=== PATIENT | female | born 1990 | race Two or more races ===

== ENCOUNTER 2019-06-17 09:51 | Emergency (ER) | payer MEDICAID ==
[~2019-06-17] VITALS: Ht 154.9 cm; Wt 77.1 kg
[2019-06-17] MEDS: ACETAMINOPHEN 325MG TABLET PO PRN ×2 (11:10→11:11)
[2019-06-17 11:32] LABS: CLARITY URINE CLOUDY (CLEAR); COLOR URINE YELLOW (YELLOW); KETONES URINE NEGATIVE (NEGATIVE); LEUKOCYTE ESTERASE URINE TRACE (NEGATIVE); NITRITE URINE POSITIVE (NEGATIVE); OCCULT BLOOD URINE NEGATIVE (NEGATIVE); PROTEIN URINE NEGATIVE (NEGATIVE); SPECIFIC GRAVITY URINE 1.009 (1.005-1.030); UROBILINOGEN URINE 0.2 E.U./dL (0.2-1.0)
[2019-06-17 11:40] LABS: CHLORIDE 104 mEq/L (98-107)
[2019-06-17 12:05] LABS: B-HCG QUANTITATIVE 12833 mIU/mL (<3)
[2019-06-17 13:11] LABS: BASOPHILS % 0.4 % (0.0-2.0); EOSINOPHILS % 0.8 % (0.0-5.0); HEMATOCRIT. 35.4 % (36.0-48.0); HEMOGLOBIN. 11.3 g/dL (12.0-16.0); LYMPHOCYTES % 17.6 % (20.0-50.0); MEAN CORPUSCULAR HEMOGLOBIN 22.4 pg (28.0-32.0); MEAN CORPUSCULAR VOLUME 70.1 fL (81.0-99.0); MEAN PLATELET VOLUME 8.8 fl (7.4-10.4); MONOCYTES % 4.5 % (2.0-8.0); NEUTROPHILS % 76.7 % (40.0-76.0); PLATELET 311 x1000/uL (130-400); RED BLOOD CELL COUNT 5.06 mill/uL (4.2-5.4)
[2019-06-17 13:49] LABS: PLATELET ESTIMATE NORMAL
[2019-06-17 13:53] VITALS: BP 141/75
== END 2019-06-17 13:53 | disposition home or self-care (01) ==
LOC: ER 09:51
DX: O23.02 Infections of kidney in pregnancy, second trimester (principal); O26.892 Other specified pregnancy related conditions, second trimester; R03.0 Elevated blood-pressure reading, without diagnosis of hypertension; Z3A.17 17 weeks gestation of pregnancy
CPT/HCPCS: 36415; 76805; 80053; 81003; 81025; 84702; 85025; 86850; 86900; 99284

== ENCOUNTER 2019-11-02 13:26 | Emergency (ER) | payer MEDICAID ==
[~2019-11-02] VITALS: Ht 154.9 cm; Wt 95.0 kg
[2019-11-02 14:42] VITALS: BP 128/78
[2019-11-02] MEDS ORDERED: PNV1TABL76 MT (17:44)
== END 2019-11-02 14:43 | disposition home or self-care (01) ==
LOC: ER 13:26
DX: O26.893 Other specified pregnancy related conditions, third trimester (principal); L29.9 Pruritus, unspecified; Z3A.34 34 weeks gestation of pregnancy
CPT/HCPCS: 99281

== ENCOUNTER 2019-11-02 14:38 | Observation (INO) | payer MEDICAID ==
[~2019-11-02] VITALS: Ht 154.9 cm; Wt 94.8 kg
[2019-11-02] MEDS ORDERED: PNV1TABL76 MT (17:44)
== END 2019-11-02 18:00 | disposition home or self-care (01) ==
LOC: 8 EST LDRP 14:38
PROVIDERS: ADMIT Obstetrics & Gynecology; ATTEND Obstetrics & Gynecology
DX: O9A.213 Injury, poisoning and certain other consequences of external causes complicating pregnancy, third trimester (principal); S90.861A Insect bite (nonvenomous), right foot, initial encounter; S90.862A Insect bite (nonvenomous), left foot, initial encounter; O26.893 Other specified pregnancy related conditions, third trimester; L29.9 Pruritus, unspecified; Z3A.39 39 weeks gestation of pregnancy; W57.XXXA Bitten or stung by nonvenomous insect and other nonvenomous arthropods, initial encounter; Y93.89 Activity, other specified; Y92.89 Other specified places as the place of occurrence of the external cause
CPT/HCPCS: 76805; 76818; 82239; 99281; G0378

== ENCOUNTER 2019-11-04 12:11 | Observation (INO) | payer MEDICAID ==
[~2019-11-04] VITALS: Ht 154.9 cm; Wt 95.3 kg
[~2019-11-04 12:11] MED LIST: PNV1TABL76 MT
== END 2019-11-04 13:30 | disposition home or self-care (01) ==
LOC: 8 EST LDRP 12:11
PROVIDERS: ADMIT Obstetrics & Gynecology; ATTEND Obstetrics & Gynecology
DX: Z34.90 Encounter for supervision of normal pregnancy, unspecified, unspecified trimester (principal); Z3A.39 39 weeks gestation of pregnancy
CPT/HCPCS: 59025; 76815; 76818; G0378

== ENCOUNTER 2019-11-06 11:19 | Inpatient (IN) | payer MEDICAID ==
[~2019-11-06] VITALS: Ht 154.9 cm; Wt 95.3 kg
[2019-11-06] MEDS ORDERED: DEXT 5%/LACTATED RINGERS 1,000 ML IV SCH (12:46)
[2019-11-06] MEDS ORDERED: LIDOCAINE HCL 1% 20ML VIAL (Pyxis) INJ INFIL SCH (13:00)
[2019-11-06] MEDS ORDERED: MISOPROSTOL 100MCG TABLET VG SCH (13:00)
[2019-11-06] MEDS ORDERED: METHYLERGONOVINE MALEATE 0.2 MG/ML IM PRN (13:00)
[2019-11-06] MEDS ORDERED: NALOXONE HCL 0.4 MG/ML 1ML VIAL IM PRN (13:00)
[2019-11-06] MEDS ORDERED: DEXT 5%/LR + PITOCIN 20UNITS/L 1,000 ML IV PRN (13:00)
[2019-11-06] MEDS ORDERED: CARBOPROST TROMETHAMINE 250 MCG/ML AMPUL IM PRN (13:00)
[2019-11-06] MEDS ORDERED: BUTORPHANOL TARTRATE 2 MG/ML VIAL IV PRN (13:00)
[2019-11-06 13:13] LABS: CLARITY URINE CLEAR (CLEAR); COLOR URINE YELLOW (YELLOW); KETONES URINE NEGATIVE (NEGATIVE); LEUKOCYTE ESTERASE URINE TRACE (NEGATIVE); NITRITE URINE NEGATIVE (NEGATIVE); OCCULT BLOOD URINE 3+ (NEGATIVE); PROTEIN URINE NEGATIVE (NEGATIVE); SPECIFIC GRAVITY URINE 1.019 (1.005-1.030); UROBILINOGEN URINE 0.2 E.U./dL (0.2-1.0)
[2019-11-06 13:19] LABS: BASOPHILS % 0.4 % (0.0-2.0); EOSINOPHILS % 0.1 % (0.0-5.0); HEMOGLOBIN. 11.9 g/dL (12.0-16.0); INR 0.9; MEAN CORPUSCULAR HEMOGLOBIN 24.9 pg (28.0-32.0); MEAN CORPUSCULAR VOLUME 77.8 fL (81.0-99.0); MEAN PLATELET VOLUME 9.2 fl (7.4-10.4); MONOCYTES % 4.2 % (2.0-8.0); NEUTROPHILS % 84.3 % (40.0-76.0); PARTIAL THROMBOPLASTIN TIME 33.6 sec (23.4-31.0); PLATELET 266 x1000/uL (130-400); PROTHROMBIN TIME 9.9 sec (9.6-11.0); RED BLOOD CELL COUNT 4.76 mill/uL (4.2-5.4); RED CELL DISTRIBUTION WIDTH 16.3 % (11.6-14.6)
[2019-11-06 13:58] LABS: HEPATITIS B SURFACE ANTIGEN NEGATIVE
[2019-11-06 14:16] LABS: *AMPHETAMINES SCREEN URINE NEGATIVE (NEGATIVE); *BARBITURATES SCREEN URINE NEGATIVE (NEGATIVE); *BENZODIAZEPINES SCREEN URINE NEGATIVE (NEGATIVE); *COCAINE SCREEN URINE NEGATIVE (NEGATIVE); METHADONE URINE SCREEN NEGATIVE (NEGATIVE); OPIATES URINE SCREEN NEGATIVE (NEGATIVE)
[2019-11-06 14:17] LABS: CANNABINOID URINE SCREEN NEGATIVE (NEGATIVE); PHENCYCLIDINE URINE SCREEN NEGATIVE (NEGATIVE)
[2019-11-06] MEDS: LACTATED RINGERS 1,000 ML IV SCH ×3 (14:53→20:00)
[2019-11-06] MEDS ORDERED: ROPIVACAINE HCL 10MG/ML 20 ML VIAL EPI ONE (19:15)
[2019-11-06] MEDS ORDERED: ROPIVACAINE HCL/PF EPIDURAL 200 ML EPI NR (19:15)
[2019-11-07] MEDS: LACTATED RINGERS 1,000 ML IV SCH ×2 (04:30→07:21)
[2019-11-07] MEDS ORDERED: MORPHINE SULFATE/PF 1MG/ML 10ML AMP ONE (07:45)
[2019-11-07] MEDS ORDERED: FENTANYL CITRATE/PF 50MCG/ML 2ML VIAL ONE (07:45)
[2019-11-07] MEDS ORDERED: MIDAZOLAM HCL 2 MG/2 ML VIAL ONE (07:58)
[2019-11-07] MEDS ORDERED: KETAMINE HCL 50 MG/ML 10ML ONE (07:58)
[2019-11-07] MEDS ORDERED: DIPHENHYDRAMINE 50MG/ML VIAL ONE (08:09)
[2019-11-07] MEDS ORDERED: KETOROLAC 60MG/2ML VIAL IM ONE (08:09)
[2019-11-07] MEDS ORDERED: OXYTOCIN 10 UNITS/ML 1ML ONE (08:14)
[2019-11-07] MEDS ORDERED: ESMOLOL HCL 10MG/ML 10ML VIAL IV ONE (08:14)
[2019-11-07] MEDS ORDERED: ONDANSETRON HCL 4MG/2ML INJ ONE (08:34)
[2019-11-07] MEDS ORDERED: DEXT 5%/LR + PITOCIN 20UNITS/L 1,000 ML IV SCH (08:44)
[2019-11-07] MEDS ORDERED: IBUPROFEN 400MG TABLET PO PRN (08:45)
[2019-11-07] MEDS ORDERED: BISACODYL 10MG SUPP PR PRN (08:45)
[2019-11-07] MEDS ORDERED: KETOROLAC 30MG/ML VIAL IV PRN (08:45)
[2019-11-07] MEDS ORDERED: RHO(D) IMMUNE GLOBULIN 300 MCG/SYR IM PRN (08:45)
[2019-11-07] MEDS ORDERED: NALOXONE HCL 0.4 MG/ML 1ML VIAL IV PRN (09:15)
[2019-11-07] MEDS ORDERED: BUTORPHANOL TARTRATE 2 MG/ML VIAL IV PRN (09:15)
[2019-11-07] MEDS ORDERED: DIPHENHYDRAMINE 50MG/ML VIAL IV PRN (09:15)
[2019-11-07] MEDS ORDERED: KETOROLAC 30MG/ML VIAL IV SCH (09:30)
[2019-11-07] MEDS ORDERED: LIDOCAINE HCL 2%/EPINEPHRINE 1:100,000 20 ML VIAL INFIL ONE ×2 (10:17→10:19)
[2019-11-07 11:25] VITALS: BP 105/63
[2019-11-07 11:55] VITALS: BP 99/50
[2019-11-07 13:00] VITALS: BP 106/52
[2019-11-07 16:34] VITALS: BP 105/62
[2019-11-07 20:00] VITALS: BP 106/61
[2019-11-08] VITALS: BP 119/67
[2019-11-08 04:00] VITALS: BP 11/57
[2019-11-08 06:28] LABS: BASOPHILS % 0.3 % (0.0-2.0); EOSINOPHILS % 0.5 % (0.0-5.0); HEMOGLOBIN. 8.7 g/dL (12.0-16.0); LYMPHOCYTES % 16.2 % (20.0-50.0); MEAN CORPUSCULAR HEMOGLOBIN 25.4 pg (28.0-32.0); MEAN CORPUSCULAR VOLUME 78.7 fL (81.0-99.0); MEAN PLATELET VOLUME 8.6 fl (7.4-10.4); MONOCYTES % 5.7 % (2.0-8.0); NEUTROPHILS % 77.3 % (40.0-76.0); PLATELET 206 x1000/uL (130-400); RED BLOOD CELL COUNT 3.43 mill/uL (4.2-5.4); RED CELL DISTRIBUTION WIDTH 16.6 % (11.6-14.6)
[2019-11-08 07:29] VITALS: BP 101/57
[2019-11-08] MEDS: IBUPROFEN 800MG TABLET PO PRN ×2 (13:47→21:08)
[2019-11-08 19:30] VITALS: BP 113/65
[2019-11-09] VITALS: BP 128/84
[2019-11-09 04:00] VITALS: BP 122/81
[2019-11-09] MEDS: IBUPROFEN 800MG TABLET PO PRN (07:41)
[2019-11-09 08:00] VITALS: BP 108/69
[2019-11-09] MEDS ORDERED: TETANUS, DIPHTHERIA, PERTUSSIS VAC/PF 0.5ML (>7YR OLD) IM ONE (08:00)
== END 2019-11-09 12:10 | disposition home or self-care (01) | DRG 540 ==
LOC: OBSVTOIN 11:19 → 8 EST LDRP 11:19 → 8EST 11-07 11:09
PROVIDERS: ADMIT Obstetrics & Gynecology; ATTEND Obstetrics & Gynecology
PROC: 10D00Z1 Extraction of Products of Conception, Low, Open Approach (ICD-10-PCS; principal; 2019-11-07)
DX: O32.8XX0 Maternal care for other malpresentation of fetus, not applicable or unspecified (principal); O77.0 Labor and delivery complicated by meconium in amniotic fluid; O99.214 Obesity complicating childbirth; E66.9 Obesity, unspecified; O99.02 Anemia complicating childbirth; D62 Acute posthemorrhagic anemia; Z37.0 Single live birth; Z3A.40 40 weeks gestation of pregnancy
CPT/HCPCS: 36415; 80305; 81003; 85025; 86592; 86703; 86762; 86850; 86900; 87340; 88307; 90715; 99281; G0378; J0595; J1200; J1885; J2250; J2274; J2405; J2590; J2795; J3010; J3490

== ENCOUNTER 2020-11-29 04:42 | Emergency (ER) | payer MEDICAID ==
[~2020-11-29] VITALS: Ht 154.9 cm; Wt 87.0 kg
[2020-11-29 06:45] LABS: BASOPHILS % 0.3 % (0.0-2.0); EOSINOPHILS % 0.6 % (0.0-5.0); HEMATOCRIT. 35.1 % (36.0-48.0); HEMOGLOBIN. 11.5 g/dL (12.0-16.0); LYMPHOCYTES % 19.4 % (20.0-50.0); MEAN CORPUSCULAR HEMOGLOBIN 24.2 pg (28.0-32.0); MEAN CORPUSCULAR VOLUME 73.6 fL (81.0-99.0); MEAN PLATELET VOLUME 8.1 fl (7.4-10.4); MONOCYTES % 6.4 % (2.0-8.0); NEUTROPHILS % 73.3 % (40.0-76.0); PLATELET 288 x1000/uL (130-400); RED BLOOD CELL COUNT 4.77 mill/uL (4.2-5.4); RED CELL DISTRIBUTION WIDTH 15.4 % (11.6-14.6)
[2020-11-29 06:55] LABS: CHLORIDE 104 mEq/L (98-107)
[2020-11-29 06:58] LABS: CLARITY URINE CLOUDY (CLEAR); COLOR URINE YELLOW (YELLOW); KETONES URINE NEGATIVE (NEGATIVE); LEUKOCYTE ESTERASE URINE 2+ (NEGATIVE); NITRITE URINE NEGATIVE (NEGATIVE); OCCULT BLOOD URINE NEGATIVE (NEGATIVE); PROTEIN URINE NEGATIVE (NEGATIVE); SPECIFIC GRAVITY URINE 1.026 (1.005-1.030); UROBILINOGEN URINE 0.2 E.U./dL (0.2-1.0)
[2020-11-29 07:18] LABS: B-HCG QUANTITATIVE 57543 mIU/mL (<3)
[2020-11-29 07:24] LABS: HCG SCREEN POSITIVE
[2020-11-29] MEDS ORDERED: NITR-87 MT (09:34)
[2020-11-29 09:44] VITALS: BP 110/71
== END 2020-11-29 09:45 | disposition home or self-care (01) ==
LOC: ER 04:42
DX: O23.31 Infections of other parts of urinary tract in pregnancy, first trimester (principal); R10.13 Epigastric pain; Z3A.11 11 weeks gestation of pregnancy
CPT/HCPCS: 36415; 76700; 76801; 80053; 81003; 81025; 84702; 84703; 85025; 87077; 87186; 99285

== ENCOUNTER 2021-06-15 00:38 | Inpatient (IN) | payer MEDICAID ==
[~2021-06-15] VITALS: Ht 154.9 cm; Wt 95.3 kg
[~2021-06-15 00:38] MED LIST changes: +NITR-87 MT; -PNV1TABL76 MT
[2021-06-15] MEDS ORDERED: CARBOPROST TROMETHAMINE 250 MCG/ML AMPUL IM PRN (01:30)
[2021-06-15] MEDS ORDERED: METHYLERGONOVINE MALEATE 0.2 MG/ML IM PRN (01:30)
[2021-06-15] MEDS ORDERED: NALOXONE HCL 0.4 MG/ML 1ML VIAL IM PRN (01:30)
[2021-06-15] MEDS ORDERED: TERBUTALINE SULFATE 1MG/ML VIAL SUBCUT ONE (01:30)
[2021-06-15] MEDS ORDERED: DEXT 5%/LR + PITOCIN 20UNITS/L 1,000 ML IV SCH (01:30)
[2021-06-15 02:11] LABS: CLARITY URINE CLOUDY (CLEAR); COLOR URINE YELLOW (YELLOW); KETONES URINE TRACE (NEGATIVE); LEUKOCYTE ESTERASE URINE 1+ (NEGATIVE); NITRITE URINE NEGATIVE (NEGATIVE); OCCULT BLOOD URINE 3+ (NEGATIVE); PROTEIN URINE 1+ (NEGATIVE); SPECIFIC GRAVITY URINE 1.025 (1.005-1.030)
[2021-06-15 02:13] LABS: BASOPHILS % 0.8 % (0.0-2.0); EOSINOPHILS % 0.5 % (0.0-5.0); HEMATOCRIT. 34.4 % (36.0-48.0); HEMOGLOBIN. 10.6 g/dL (12.0-16.0); LYMPHOCYTES % 20.8 % (20.0-50.0); MEAN CORPUSCULAR HEMOGLOBIN 21.8 pg (28.0-32.0); MEAN CORPUSCULAR VOLUME 70.5 fL (81.0-99.0); MEAN PLATELET VOLUME 9.1 fl (7.4-10.4); MONOCYTES % 6.1 % (2.0-8.0); NEUTROPHILS % 71.8 % (40.0-76.0); PLATELET 278 x1000/uL (130-400); RED BLOOD CELL COUNT 4.88 mill/uL (4.2-5.4)
[2021-06-15] MEDS: LACTATED RINGERS 1,000 ML IV SCH ×3 (02:15→21:10)
[2021-06-15 02:18] LABS: CHLORIDE 106 mEq/L (98-107)
[2021-06-15 02:24] LABS: *AMPHETAMINES SCREEN URINE NEGATIVE (NEGATIVE)
[2021-06-15 02:25] LABS: *BARBITURATES SCREEN URINE NEGATIVE (NEGATIVE); *BENZODIAZEPINES SCREEN URINE NEGATIVE (NEGATIVE); *COCAINE SCREEN URINE NEGATIVE (NEGATIVE); METHADONE URINE SCREEN NEGATIVE (NEGATIVE); OPIATES URINE SCREEN NEGATIVE (NEGATIVE)
[2021-06-15 02:26] LABS: PHENCYCLIDINE URINE SCREEN NEGATIVE (NEGATIVE)
[2021-06-15] MEDS ORDERED: CITRIC ACID/SODIUM CITRATE SOLN 30ML UDC PO SCH (02:30)
[2021-06-15 02:34] LABS: INR 0.9; PROTHROMBIN TIME 9.7 sec (9.6-11.0)
[2021-06-15] MEDS ORDERED: CEFAZOLIN SODIUM 1000MG/VIAL ONE (02:36)
[2021-06-15] MEDS ORDERED: MORPHINE SULFATE/PF 1MG/ML 10ML AMP ONE (02:36)
[2021-06-15] MEDS ORDERED: EPHEDRINE SULFATE 50MG/ML VIAL ONE (02:36)
[2021-06-15] MEDS ORDERED: PHENYLEPHRINE HCL 10 MG/ML 1ML (IV VIAL) IV ONE (02:36)
[2021-06-15] MEDS ORDERED: FENTANYL CITRATE/PF 50MCG/ML 2ML VIAL ONE (02:36)
[2021-06-15] MEDS ORDERED: OXYTOCIN 10 UNITS/ML 1ML ONE (02:36)
[2021-06-15] MEDS ORDERED: DIPHENHYDRAMINE 50MG/ML VIAL ONE (02:36)
[2021-06-15] MEDS ORDERED: ONDANSETRON HCL 4MG/2ML INJ ONE (02:36)
[2021-06-15] MEDS ORDERED: SODIUM CHLORIDE 0.9% 10ML VIAL ONE (02:40)
[2021-06-15 03:23] LABS: CANNABINOID URINE SCREEN NEGATIVE (NEGATIVE)
[2021-06-15] MEDS ORDERED: DIPHENHYDRAMINE 50MG/ML VIAL IV PRN (04:00)
[2021-06-15] MEDS ORDERED: NALOXONE HCL 0.4 MG/ML 1ML VIAL IV PRN (04:00)
[2021-06-15] MEDS ORDERED: BUTORPHANOL TARTRATE 2 MG/ML VIAL IV PRN (04:00)
[2021-06-15] MEDS ORDERED: KETOROLAC 60MG/2ML VIAL IM ONE (04:08)
[2021-06-15] MEDS ORDERED: ONDANSETRON HCL 4MG/2ML INJ IV PRN (05:00)
[2021-06-15] MEDS ORDERED: LANOLIN OINT 7GM TUBE TOP PRN (05:00)
[2021-06-15] MEDS ORDERED: DIPHENHYDRAMINE 25MG CAPSULE PO PRN (05:00)
[2021-06-15] MEDS ORDERED: BISACODYL 10MG SUPP PR PRN (05:00)
[2021-06-15] MEDS ORDERED: IBUPROFEN 400MG TABLET PO PRN (05:00)
[2021-06-15] MEDS ORDERED: HYDROCODONE/ACETAMINOPHEN 5/325MG TABLET PO PRN (05:00)
[2021-06-15] MEDS: DEXT 5%/LR + PITOCIN 20UNITS/L 1,000 ML IV SCH ×2 (05:05→12:54)
[2021-06-15 06:30] VITALS: BP 116/71
[2021-06-15] MEDS: MAGNESIUM/ALUMINUM HYDROXIDE/SIMETHICONE 30ML UDC PO SCH ×4 (07:30→21:08)
[2021-06-15] MEDS: SIMETHICONE 80MG TABLET CHEW PO SCH ×4 (08:00→21:07)
[2021-06-15 08:08] VITALS: BP 111/72
[2021-06-15 09:00] VITALS: BP 110/65
[2021-06-15] MEDS ORDERED: TETANUS, DIPHTHERIA, PERTUSSIS VAC/PF 0.5ML (>10YR OLD) IM ONE (09:00)
[2021-06-15] MEDS ORDERED: INFLUENZA VACCINE 05/PF 0.5 ML SYRINGE IM ONE (09:00)
[2021-06-15] MEDS: KETOROLAC 30MG/ML VIAL IV SCH ×2 (09:57→15:34)
[2021-06-15 10:00] VITALS: BP 116/69
[2021-06-15 14:57] VITALS: BP 106/62
[2021-06-15 19:30] VITALS: BP 116/73
[2021-06-15] MEDS: DOCUSATE SODIUM 100MG CAPSULE PO SCH (21:07)
[2021-06-15] MEDS: IBUPROFEN 800MG TABLET PO PRN (21:08)
[2021-06-16 04:00] VITALS: BP 106/63
[2021-06-16 07:31] LABS: BASOPHILS % 0.3 % (0.0-2.0); EOSINOPHILS % 0.8 % (0.0-5.0); HEMATOCRIT. 25.5 % (36.0-48.0); HEMOGLOBIN. 8.1 g/dL (12.0-16.0); LYMPHOCYTES % 20.2 % (20.0-50.0); MEAN CORPUSCULAR HEMOGLOBIN 22.3 pg (28.0-32.0); MEAN CORPUSCULAR VOLUME 70.4 fL (81.0-99.0); MEAN PLATELET VOLUME 8.4 fl (7.4-10.4); NEUTROPHILS % 71.7 % (40.0-76.0); PLATELET 210 x1000/uL (130-400); RED BLOOD CELL COUNT 3.62 mill/uL (4.2-5.4); RED CELL DISTRIBUTION WIDTH 16.3 % (11.6-14.6)
[2021-06-16 08:00] VITALS: BP 107/64
[2021-06-16] MEDS: MAGNESIUM/ALUMINUM HYDROXIDE/SIMETHICONE 30ML UDC PO SCH ×4 (08:24→21:59)
[2021-06-16] MEDS: FERROUS SULFATE 325MG TABLET PO SCH ×3 (08:24→17:31)
[2021-06-16] MEDS: SIMETHICONE 80MG TABLET CHEW PO SCH ×4 (08:25→21:59)
[2021-06-16] MEDS: IBUPROFEN 800MG TABLET PO PRN (12:59)
[2021-06-16 15:23] VITALS: BP 98/57
[2021-06-16 20:00] VITALS: BP 102/64
[2021-06-16] MEDS: DOCUSATE SODIUM 100MG CAPSULE PO SCH (21:59)
[2021-06-17 04:00] VITALS: BP 112/75
[2021-06-17] MEDS: IBUPROFEN 800MG TABLET PO PRN ×2 (04:37→09:39)
[2021-06-17 07:30] VITALS: BP 107/59
[2021-06-17] MEDS: FERROUS SULFATE 325MG TABLET PO SCH (08:37)
[2021-06-17] MEDS: MAGNESIUM/ALUMINUM HYDROXIDE/SIMETHICONE 30ML UDC PO SCH (08:37)
[2021-06-17] MEDS: SIMETHICONE 80MG TABLET CHEW PO SCH (08:38)
[2021-06-17 20:55] LABS: HEPATITIS B SURFACE ANTIGEN NEGATIVE
== END 2021-06-17 10:55 | disposition home or self-care (01) | DRG 540 ==
LOC: 8 EST LDRP 00:38 → OBSVTOIN 00:38 → 8EST 06:16
PROVIDERS: ADMIT Specialist; ATTEND Specialist
PROC: 10D00Z1 Extraction of Products of Conception, Low, Open Approach (ICD-10-PCS; principal; 2021-06-15)
DX: O34.211 Maternal care for low transverse scar from previous cesarean delivery (principal); O99.214 Obesity complicating childbirth; O36.63X0 Maternal care for excessive fetal growth, third trimester, not applicable or unspecified; Z20.822 Contact with and (suspected) exposure to COVID-19; Z79.899 Other long term (current) drug therapy; Z3A.38 38 weeks gestation of pregnancy; Z37.0 Single live birth
CPT/HCPCS: 36415; 80053; 80305; 81003; 84550; 85025; 85384; 86592; 86703; 86762; 86850; 86900; 87340; 87426; 88307; 90686; 90715; 99281; J0595; J0690; J1200; J1885; J2274; J2370; J2405; J2590; J3010; J3105; J3490; J7120; A4315